=== PATIENT | male | born 1935 | race Caucasian/White ===

== ENCOUNTER 2016-10-25 20:53 | Inpatient (IN) | payer MEDICARE, OTHER ==
[~2016-10-25] VITALS: Ht 172.7 cm; Wt 75.3 kg
--- NOTE | ~2016-10-25 | HP ---
ADMIT: 10/25/2016 RM/LOC: 418 [facility] MR#: [id number] 26[address] [facility] [address] [place] [id number] LIN[place] HERNANDEZ [address] [place] [address] History and Physical SEX: M AGE: 81 : 1935 DATE OF SERVICE: CHIEF COMPLAINT: 1. Melena. 2. Anemia. CLINICAL HISTORY: Anoop had an upper respiratory infection for the last 7-10 days. He started taking Naprosyn, higher doses of aspirin, and came in with the onset of diarrhea with melena for 24 hours with a drop in hemoglobin from 14 down to 10. He was seen in the emergency room and evaluated for the possibility of a GI bleed. He was brought in, made n.p.o. and his home medicines were held. It was only the following day that he allowed that he had been taking significant amounts of NSAIDs. PAST HISTORY: Includes a prior carotid arteries occlusion, stable and status post carotid endarterectomy as well as known coronary artery disease, status post coronary artery bypass grafting, hypertension, moderate emphysema post smoking. MEDICATIONS: Please see current list plus NSAIDs liberally. REVIEW OF SYSTEMS: He denies any chest pain, abdominal pain, but did have the diarrhea and associated with it was some nausea. He is lightheaded and weak, but overall has no other specific symptoms. He has no history of prior GI bleed and is up to date on colonoscopy. PHYSICAL EXAMINATION: GENERAL: Reveals a white male, in no acute distress, pleasant and cooperative and has no specific complaints currently. HEAD AND NECK: Otherwise unremarkable. LUNGS: Clear. HEART: Regular with a pulse rate at 78. ABDOMEN: Benign. Helicobacter originally was reported as reactive and subsequently a repeat examination was reported as negative, but is not currently on the chart. Hemoglobin originally was 10, dropped to 8.3, and post transfusion rebounded ADMIT: 10/25/2016 RM/LOC: 418 [facility] MR#: [id number] [address] [phone] LIN[place] HERNANDEZ [address] [place] [address] History and Physical SEX: M AGE: 81 : 1935 considerably. An upper GI demonstrating gastroesophageal reflux without obvious ulcers. Chest x-ray was negative. EKG showed left bundle branch block with MD interval of 0.16. IMPRESSION: 1. Gastrointestinal bleed secondary to nonsteroidal antiinflammatory drugs. 2. Emphysema. 3. Coronary artery disease. 4. Carotid artery disease. 5. Emphysema. Kp Krishnan MD/ shantell JOB #: [id number] CC: Kp Krishnan MD, Attending Physician Kp Krishnan MD, Family Physician
--- NOTE | 2016-10-28 13:14 | ER ---
ADMIT: 10/25/2016 RM/LOC: 418 [facility] MR#: [id number] [address] [id number] LIN[place] HERNANDEZ [address] [place] [address] Emergency Room Report SEX: M AGE: 81 : 1935 DATE: 10/25/2016 HISTORY OF PRESENT ILLNESS: The patient is an 81-year-old male with history of hypertension, coronary artery disease, and right carotid endarterectomy and also left carotid chronic stenosis, who came to the ER with chief complaint of crampy generalized abdominal pain which resolved today and also complains of dark tarry stool which was profuse and happened once today. The patient denies similar episodes in the past. The patient also complains of generalized weakness. PHYSICAL EXAMINATION: VITAL SIGNS: The patient had heart rate of 63 with blood pressure 130/51, respiratory rate of 98, temperature was 97. GENERAL: The patient was lethargic but alert and oriented, in no obvious pain or distress, lying in bed. HEAD AND NECK: Conjunctivae are mildly pale, sclerae are not icteric. Trachea midline. Mild bruit in the neck. CHEST: Clear bilaterally. HEART: Normal heart sounds. ABDOMEN: Soft, I did not see any ecchymoses on the skin. GENITOURINARY: Genitalia is normal. On digital rectal exam, there is no obvious profuse bleeding, there were very scant dark black tarry stool on digital rectal exam, which was positive for Hemoccult. EXTREMITIES: Nontender and no edema with normal range of motion. NEURO: Grossly normal. The patient received IV fluids, CBC showed hemoglobin of 10.1, with platelet of 170,000 and white BC of 11.1. Sodium was 140 with potassium of 4.2, BUN was increased to 67 with increased creatinine to 2.1. Lactic acid was 1.1. EKG with left bundle-branch block. Chest x-ray was questionable with right lung infiltration, bilateral hilar lymphadenopathy. Comparing with the previous chest CT scan and the previous year's, the patient had a history of exposure to abscess allegedly and had some lesions in lungs allegedly. The patient empirically was started on ceftriaxone 1 g IV. Considering increase in the BUN and creatinine, and positive Hemoccult and tarry stool, the patient was admitted for acute kidney injury, prerenal, and upper GI bleeding, for further followups and treatments. Benedicto Beavers MD/ ernesto JOB #: [id number] CC: Kp Krishnan MD, Attending Physician Kp Krishnan MD, Family Physician
[2016-10-29] MEDS ORDERED: KEPPRA DPS500 MG PO (12:50)
[2016-10-29] MEDS ORDERED: NORVASC5 MG PO (12:50)
[2016-10-29] MEDS ORDERED: COZAAR DPS50 MG PO (12:51)
[2016-10-29] MEDS ORDERED: ADVAIR DIS1 PUFF/DO2 IH (12:51)
[2016-10-29] MEDS ORDERED: METOPROLOL TART25 MG PO (12:51)
[2016-10-29] MEDS ORDERED: LIPITOR DPS10 MG PO (12:52)
[2016-10-29] MEDS ORDERED: PREVPAC PATIEN1 EACH PO (12:53)
[2016-10-29] MEDS ORDERED: HYDROCHLOROTHIA25 MG PO (12:53)
--- NOTE | 2017-01-09 10:28 | DS ---
ADMIT: 10/25/2016 RM/LOC: 418 [facility] MR#: [id number] [address] [facility] [address] [place] [phone] [place] GRAYSON [address] [place] [address] Discharge Summary SEX: M AGE: 81 : 1935 ADMISSION DATE: 10/25/2016 DISCHARGE DATE: 10/28/2016 CLINICAL HISTORY: Anoop Grayson was admitted to the hospital with GI bleed secondary to excess NSAID use. Helicobacter was positive. It was unclear as to the significance, but he was treated with Prevpac. He made a prompt recovery after transfusion, his melena resolved and upper GI was negative and stool studies for enteric pathogens and C. diff were both negative. Ultimately he was dismissed to follow up as an outpatient on: 1. Pepcid 20 p.o. b.i.d. 2. He is to resume his Keppra 500 b.i.d. 3. Losartan 50 mg daily. 4. Amlodipine 5 mg daily. 5. Metoprolol 25 mg b.i.d. 6. Advair 500/50, two puffs daily. 7. Atorvastatin 10 mg daily. 8. Hydrochlorothiazide 25 mg daily. 9. He will not take his aspirin, Aleve, or clopidogrel as he was taking as an outpatient. Close followup of his medications, and hemoglobin will be undertaken. Kp Krishnan MD/ shantell JOB #: [id number] CC: Kp Krishnan MD, Attending Physician Kp Krishnan MD, Family Physician
== END 2016-10-28 15:10 | disposition home or self-care (01) | DRG 379 ==
LOC: ER 20:53 → 4PCU 23:10
PROVIDERS: ADMIT Internal Medicine
PROC: 30233N1 Transfusion of Nonautologous Red Blood Cells into Peripheral Vein, Percutaneous Approach (ICD-10-PCS; principal; 2016-10-28)
DX: K25.4 Chronic or unspecified gastric ulcer with hemorrhage (principal); I65.22 Occlusion and stenosis of left carotid artery; D64.9 Anemia, unspecified; I10 Essential (primary) hypertension; I25.10 Atherosclerotic heart disease of native coronary artery without angina pectoris